=== PATIENT | male | born 1995 | race Two or more races ===

== ENCOUNTER 2018-07-18 17:45 | Emergency (ER) | payer MEDICAID ==
[~2018-07-18] VITALS: Ht 182.9 cm; Wt 79.5 kg
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
[2018-07-18] MEDS ORDERED: CLAR500T9 PO (18:14)
--- NOTE | 2018-07-18 18:25 | NUR ---
PT RESTING ON GURNEY IN C-SPINE PRECAUTIONS AND C-COLLAR. DENIES NEED TO USE RESTROOM. REMAINS A&OX4. CONTINUE AWAITING EVALUATION BY ERP. VSS. CALL LIGHT IN REACH. DISCUSSED PT WITH DR. TELLES, AWARE, TO SEE PT.
--- NOTE | 2018-07-18 18:28 | NUR ---
DR. TELLES AT BEDSIDE FOR EVALUATION
[2018-07-18 18:52] LABS: BASOPHILS # (AUTO) 0.04 x10^3/uL (0-0.3); BASOPHILS % (AUTO) 0 % (0-1); EOSINOPHILS # (AUTO) 0.04 x10^3/uL (0-0.8); EOSINOPHILS % (AUTO) 0 % (1-7); LYMPHOCYTES # (AUTO) 1.44 x10^3/uL (1-6.1); LYMPHOCYTES % (AUTO) 11 % (22-44); MD NO; MEAN CORPUSCULAR HEMOGLOBIN 30.2 pg (27.5-34.5); MEAN CORPUSCULAR HGB CONC 33.6 g/dL (33.2-36.2); MEAN PLATELET VOLUME 9.2 fL (7.4-10.4); MONOCYTES # (AUTO) 0.72 x10^3/uL (0-1.4); MONOCYTES % (AUTO) 5 % (2-9); NEUTROPHILS # (AUTO) 11.14 x10^3/uL (1.8-8.0); NEUTROPHILS % (AUTO) 83 % (42-75); PLATELET COUNT 335 x10^3/uL (130-400); RED BLOOD COUNT 5.28 x10^6/uL (4.38-5.82); RED CELL DISTRIBUTION WIDTH 13.8 % (9.4-14.8)
--- NOTE | 2018-07-18 18:53 | NUR ---
PT ASSISTED WITH URINAL. REMAINS IN C-COLLAR WITH C-SPINE PRECAUTIONS. TO CT AT THIS TIME.
[2018-07-18 19:03] LABS: ALANINE AMINOTRANSFERASE 32 U/L (12-78); ALBUMIN 4.5 g/dL (3.4-5.0); ANION GAP 8 mmol/L (5-15); CALCIUM 9.5 mg/dL (8.5-10.1); CHLORIDE 106 mmol/L (98-107); CREATININE 0.96 mg/dL (0.7-1.3)
[2018-07-18 19:08] LABS: ALKALINE PHOSPHATASE 116 U/L (45-117); BILIRUBIN,TOTAL 0.4 mg/dL (0.2-1.0); TOTAL PROTEIN 8.5 g/dL (6.4-8.2); TROPONIN I < 0.015 ng/mL (0.000-0.045)
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
--- NOTE | 2018-07-18 19:53 | NUR ---
REPORT AND CARE TO BRE[facility] ALIC[facility] HOROWITZ AT THIS TIME.
--- NOTE | 2018-07-18 20:25 | NUR ---
REPORT AND CARE BACK FROM BRE[facility] ALICIA HOROWITZ. DR. TELLES AT BEDSIDE DISCUSSING DISCHARGE POC WITH PT. C-COLLAR REMOVED BY DR. TELLES. AWAITING DISCHARGE PAPERS.
[2018-07-18 20:41] VITALS: BP 128/62
== END 2018-07-18 20:43 | disposition home or self-care (01) ==
LOC: ED 20:05
DX: S06.0X9A Concussion with loss of consciousness of unspecified duration, initial encounter (principal); S16.1XXA Strain of muscle, fascia and tendon at neck level, initial encounter; W01.0XXA Fall on same level from slipping, tripping and stumbling without subsequent striking against object, initial encounter; Y93.89 Activity, other specified; Y92.219 Unspecified school as the place of occurrence of the external cause; Y99.8 Other external cause status
CPT/HCPCS: 36415; 70450; 72125; 80053; 83735; 84484; 85025; 93005; 99284